=== PATIENT | female | born 1970 | race Caucasian/White ===

== ENCOUNTER 2020-07-20 12:35 | Observation (INO) ==
[2020-07-20] MEDS ORDERED: CEFAZOLIN 250 MG/ML 1 GM VIAL ONE (13:33)
[2020-07-20] MEDS ORDERED: BACITRACIN INJ 50,000 UNIT VIAL ONE (13:33)
[2020-07-20] MEDS ORDERED: fentaNYL citrate 100 MCG/2 ML VIAL ONE (13:33)
[2020-07-20] MEDS ORDERED: MIDAZOLAM HCL 5 MG/ML 1 ML VIAL ONE (13:33)
[2020-07-20] MEDS ORDERED: LIDOCAINE HCL 1% 20 ML VIAL ONE (13:33)
[2020-07-20] MEDS ORDERED: BUPIVACAINE 0.25% 30 ML VIAL ONE (13:33)
--- NOTE | 2020-07-20 14:21 | Pre Anesthesia Assessment ---
Date of Service July 20, 2020 Pre Sedation Assessment Vital Signs Temp Pulse Resp BP Pulse Ox 07/20/20 12:45 36.5 C 98 H 18 109/75 98 Cardiovascular RRR, no murmur, no edema Respiratory normal respiratory effort, lungs clear to auscultation Pre-Sedation Airway Assessment Smoking Status: Former smoker Short, Thick Neck: No Thyromental Distance: > or= 3.5 Finger Breadths Oral Cavity: + WNL Mallampati Class: III ASA: ASA2 NPO Status Date of Last Intake of Fluids: 07/19/20 Time of Last Intake of Fluids: 22:00 Date of Last Intake of Solid Food: 07/19/20 Time of Last Intake of Solid Foods: 22:00 Procedure Planning Contraindications for Sedation: none Current Medications Reviewed: Yes Notes The planned sedation has been discussed with the patient. Informed Consent was obtained. I have identified the patient, determined the appropriateness of sedation and have assessed the patient immediately prior to the procedure. All medicine(s) and interventions are by my order.
--- NOTE | 2020-07-20 15:18 | Post Anesthesia Assessment ---
Date of Service July 20, 2020 Post Sedation Assessment Vital Signs Temp Pulse Resp BP Pulse Ox 07/20/20 12:45 36.5 C 98 H 18 109/75 98 Recovery Score Activity: Moves 4 extremities Respiration: Deep Breath/Cough Circulation: +/-20% PreAnes Value Consciousness: Fully Awake Oxygen Saturation: > 92% On Room Air Discharge Sedation Level of Care: Fast Track Phase II Post Sedation Plan On clinical assessment, the patient appears to have tolerated the sedation without complications. Patient is recovering as anticipated. Patient will continue to be monitored by nursing and may be discharged when sedation discharge criteria are met per below protocol. Upon Completions of procedure up to 15 minutes continue every 5 minute vital signs and the P.A.R. score; then discharge to a Phase I or Fast Track to Phase II per the following guidelines: * Discharge Patient to appropriate Phase II area if PAR is 8 or greater or return to pre- procedure baseline. The post - procedure orders will be as directed. * If PAR score is less than 8 or not return to pre-procedure baseline then patient will follow Phase I monitoring till PAR is reached for Phase II. The Phase I may be done in procedure room or may call to secure a Phase I area. * If naloxone or flumazenil are used for reversal, hold in Phase I for continued monitoring from when last reversal dose was given for a minimum of 60 minutes or longer pending the nurse and/or physician discretion of patient condition before discharge to Phase II. Please call the Sedation Physician to re-evaluate and complete post-note for discharge to Phase II area. Do NOT discharge from procedure sedation or Phase 1 until post- sedation evaluation note is complete by procedure /sedation MD Sedation Discharge Instructions to be given to the patient at discharge to home.
--- NOTE | 2020-07-20 15:19 | Operative Report ---
Post Operative Report Pre & Post Diagnosis ICM Operation Date: 07/20/20 14:00 <No data on this case meets the specified criteria> I identified the patient and participated in the time-out.: Yes Procedure Operation Date: 07/20/20 14:00 Actual Procedures p ICD Insertion Single or Dual - Vera Helms DO s Venogram, Unilateral - Vera Helms DO Surgeon Vera Helms, [employer] none Estimated Blood Loss 10 Findings Consistent with Post-Op Diagnosis Specimens none Description of Procedure see official report I attest to the content of the Intraoperative Record and any orders documented therein. Any exceptions are noted below.
--- NOTE | 2020-07-20 15:21 | Discharge Summary ---
Date of Service July 21, 2020 Admission HPI Per Admitting Provider Pt admitted for ICD due to ICM Admission Exam Per Admitting Provider aaox3, NAD NC/AT, EOMI Supple No JVD Nrl S1/S2, No murmur CTA b/l no w/r/r soft nt/nd no LE edema b/l skin intact no focal deficits Principal Diagnosis ICM s/p ICD Discharge Exam aaox3, NAD NC/AT, EOMI Supple No JVD Nrl S1/S2, No murmur CTA b/l no w/r/r soft nt/nd no LE edema b/l skin intact no focal deficits left pectoral incision intact, no hematoma mild ecchymosis Discharge Data Allergies Allergy/AdvReac Type Severity Reaction Status Date / Time Latex, Natural Rubber AdvReac Rash Verified 07/20/20 13:21 levofloxacin AdvReac Rash Verified 07/20/20 13:22 spironolactone AdvReac Rash Verified 07/20/20 13:22 Procedures Performed Operation Date: 07/20/20 14:00 Actual Procedures p ICD Insertion Single or Dual - Vera Helms DO s Venogram, Unilateral - Vera Helms DO Ordered Studies ECG: ST CXR: No PTX, lead in position ICD Interrogation:Normal function 07/20/20 06:35 CL Cath Imgs for PACS use only Routine Hospital Course (1) Ischemic cardiomyopathy: Total Time Total Time Spent Total Time Spent (In Minutes): 30 Total Time Includes: Examination of the Patient, Medication Reconciliation and Other Discharge Plan Discharge Items Patient Disposition: Home - Self-Care Reason For Visit: SINGLE CHAMBER ICD Discharge Diagnosis: ICM s/p ICD Condition on Discharge: Good Activity: As commented below Activity Comment: Do not raise the left elbow over the left shoulder for 1 month Lifting: No more than 10 pounds Lifting Comment: do not lift more than 10 pounds with the left arm for 2 weeks Bathing: Keep incision dry Bathing Comment: keep dressing on and dry until wound check next week Sexual Activity: After two weeks Non-emergency contact: Supply Manager Call non-emergency contact if: you have any medication questions Follow-up/Referrals: Italo Loza MD [Primary Care Provider] - Diet: Carb Consistent or DM2 and Heart Healthy Addtl Attending Provider Instructions: Try to wear a sports bra or surgical bra for 2 weeks to help with healing process Device and wound check at [facility] as scheduled next week Pending Studies at Discharge: No Stand-Alone Forms: My [facility] Medications and DC Order Prescriptions: Continued furosemide 40 mg tablet 40 mg PO DAILY RF: 0 Diabeta 5 mg tablet 5 mg PO BID RF: 0 Lantus U-100 Insulin 10 units 10 unit SC DAILY RF: 0 albuterol sulfate 18 g inhaler 2 puff inhalation QID RF: 0 glyburide-metformin 5,500 mg tablet 1 tab PO BID RF: 0 levothyroxine 50 mcg tablet 50 mcg PO DAILY RF: 0 lisinopril 2.5 mg tablet 2.5 mg PO DAILY RF: 0 metoprolol succinate 25 mg tablet 12.5 mg PO BID RF: 0 rosuvastatin 40 mg tablet 40 mg PO DAILY RF: 0 senna 1 tab PO BID RF: 0 Fish Oil Concentrate 1,000 MG capsule 1,000 mg PO BID RF: 0 aspirin 81 MG tablet 81 mg PO DAILY RF: 0 biotin 1 MG capsule 1 mg PO TID RF: 0 cholecalciferol (vitamin D3) 1,000 UNITS tablet 1,000 units PO BID RF: 0 clopidogrel 75 MG tablet 75 mg PO DAILY RF: 0 loratadine 10 MG tablet 10 mg PO DAILY RF: 0 Discharge Orders: Discharge Order (Routine); Ordered 07/21/20 Ordered By: Vera Helms Admission Data Admit Date/Time: 07/20/20 14:43 Attending Provider: Vera Helms Admit Provider: Vera Helms Primary Care Provider: Italo Loza
[2020-07-20] MEDS ORDERED: ACETAMINOPHEN 325 MG TAB PO PRN (15:22)
[2020-07-20] MEDS ORDERED: NURSING DECISION MEDICATION ONE (15:22)
--- NOTE | 2020-07-20 16:49 | Electrocardiogram Report ---
Test Reason : Blood Pressure : / mmHG Vent. Rate : 088 BPM Atrial Rate : 088 BPM P-R Int : 190 ms QRS Dur : 074 ms QT Int : 382 ms P-R-T Axes : 054 044 093 degrees QTc Int : 462 ms Normal sinus rhythm Possible Old Anterolateral infarct Abnormal ECG No previous ECGs available Confirmed by Derek Wang ([id number]) on 07/20/2020 4:48:50 PM Referred By: Eliezer Baltazar Confirmed By:Derek Wang
[2020-07-20] MEDS: OXYCODONE/ACETAMINOPHEN 5mg/325mg TAB PO PRN (17:28)
[2020-07-21] MEDS: OXYCODONE/ACETAMINOPHEN 5mg/325mg TAB PO PRN (01:14)
--- NOTE | 2020-07-21 08:07 | XRay Report ---
XR chest 2V PA/lateral CLINICAL HISTORY: Post ICD. COMPARISON STUDY: No previous studies for comparison. FINDINGS: The heart is enlarged. There is a left subclavian implantable defibrillator.. There is no p neumothorax. Electrode position is unremarkable. There are no pleural effusions. There is no failure. [ IMPRESSION: No evidence of pneumothorax status post placement of a left subclavian implantable defibr illator. ACT 112: Negative or not required by law. Electronically signed by: Shilo Oneal M.D. 07/21/2020 8:06 AM
--- NOTE | 2020-07-26 00:47 | Operative Report (OR) ---
DATE OF OPERATION: 07/20/2020 PREOPERATIVE DIAGNOSIS: Ischemic cardiomyopathy. POSTOPERATIVE DIAGNOSIS: Ischemic cardiomyopathy. PROCEDURE: Single chamber rate responsive implantable cardiac defibrillator under fluoroscopic guidance along with peripheral venogram. SURGEON: Vera Helms DO. ASSISTANTS: None. ANESTHESIA: Monitored conscious sedation administered under my supervision by Krupa Lynch. Start time 14:40, end time 15:14. A total of 2 mg of Versed and 50 mcg of fentanyl. IV FLUIDS: 20 mL. CONTRAST: 10 mL. ANTIBIOTICS: 1 gram of Ancef. BLOOD LOSS: 10 mL. URINE OUTPUT: Not applicable. SPECIMENS: None. FINDINGS: See below. DRAINS: None. INDICATIONS: This is a 50-year-old female with past medical history for coronary artery disease where she had a myocardial infarction in 2003 and 2004 as well as in 2012 where she got stents x2 to the RCA. She has a known ischemic cardiomyopathy with ejection fraction less than 20% at least since 2011; chronic heart failure with reduced ejection fraction, [place] Heart Association class 2; hypertension; hyperlipidemia; remote tobacco use; diabetic, on insulin. Due to her ischemic cardiomyopathy, she was recommended a defibrillator. CONSENT: Consent was obtained prior to the patient going into the Electrophysiology Lab. The patient was informed of the risks, benefits and alternatives to procedure. Risks include but not limited to sudden cardiac ; cardiac arrhythmias; cerebrovascular accident; myocardial infarction; injury to the blood vessels, chamber of the heart, lung; bleeding and infection. The patient understood these risks and agreed with procedure as planned. Informed consent was obtained. DESCRIPTION OF THE PROCEDURE: The patient was brought to Electrophysiology Lab in fasting state. She was connected to continuous ekg monitor tech. Timeout was performed to ensure patient identity and procedure correctly. The patient was prepped and draped over the left infraclavicular space in normal surgical standard fashion. Monitored conscious sedation was given throughout the procedure for the patient's comfort level. Floris precautions were maintained throughout the procedure. A 10 mL of 1% lidocaine, bupivacaine mixture were given in the left deltopectoral groove. Incision was made in the left deltopectoral groove. Blunt dissection performed down to identify the cephalic vein; however, none could be identified, so a peripheral venogram was performed and venous access was obtained through the axillary vein with needle stick. Guidewire was inserted through the needle without any problems. Then the 9.5-Iraqi SafeSheath was advanced over the guidewire without any resistance. Guidewire and dilator removed and the right ventricular defibrillator lead was advanced into right ventricle and positioned in the right ventricular apex under fluoroscopic guidance. There is adequate pacing and sensing thresholds and no diaphragmatic stimulation with high output pacing. The 9.5-Iraqi sheath was peeled away and lead was fixated to pectoralis muscle using 0 silk suture. Defibrillator pocket was created using blunt dissection over the pectoralis muscle within the pectoralis fascia. The pocket was flushed with copious amounts of bacitracin saline wash and inspected for hemostasis and the defibrillator was attached to leads making sure that the pins were in appropriate position, passed set screw and set screws were all tightened. Then, the defibrillator was placed in the pocket making sure that the leads were lying flat beneath the device and the incision was closed in 3-layer fashion with 2-0 Vicryl interrupted suture, followed by 3-0 Vicryl interrupted suture, followed by 4-0 Monocryl running stitch, followed by Dermabond, Telfa and micropore dressing. EQUIPMENT: 1. Pulse generator is a [place] AF MRI VR SureScan [id number], serial number [id number]. 2. Right ventricular lead is a Medtronic 6935M-62 cm, serial number [id number]. INTRAOPERATIVE TESTING: Right ventricular lead: R-waves were 15.2 millivolts, impedance 69 ohms, threshold 0.4 volts at 0.4 milliseconds. FINAL PARAMETERS: 1. R waves 16.1 millivolts, impedance 513 ohms, threshold 0.7 volts at 0.4 milliseconds. 2. RV coil 68 ohms. 3. VVI 40. Monitor zone at 140 beats per minute for 32 detection intervals, VT zone at 167 beats per minute for 16 detection intervals and a VF zone at 200 beats per minute for 30/40 detection intervals. The right ventricular amplitude 3.5 volts, pulse width 0.4 milliseconds, sensitivity 0.3 millivolts. IMPRESSION: Successful implantation of a single chamber rate responsive implantable cardiac defibrillator under fluoroscopic guidance with peripheral venogram secondary to ischemic cardiomyopathy. PLAN: Monitor the patient overnight, 12-lead ECG, chest x-ray. She cannot lift the left elbow or left shoulder for 1 month. She cannot lift more than 10 pounds with the left arm for 2 weeks. She is to leave the dressing on and dry until her wound check next week. I attest to the content of the Intraoperative Record and any orders documented therein. Any exceptions are noted below. MTDD
== END 2020-07-21 09:00 | disposition home or self-care (01) ==
LOC: EP 12:35 → 2S 12:35
PROC: EPB.ICD (2020-07-20 14:00)